=== PATIENT | male | born 1975 | race African-American/Black ===

== ENCOUNTER → 2019-10-28 | Emergency (ER) | payer OTHER ==
[~2019-10-28] VITALS: Ht 175.3 cm; Wt 117.9 kg
[~2019-10-28] MED LIST: LIDOCAINE 2% (LOCAL ANESTH.) PF 5ml SDV ONE; cefTRIAXone SOD 1,000 MG VL IM ONE
[2019-10-28 21:00] VITALS: BP 179/129
== END | disposition home or self-care (01) ==
LOC: ER 19:05
DX: S61.451A Open bite of right hand, initial encounter (principal); W64.XXXA Exposure to other animate mechanical forces, initial encounter; Y93.89 Activity, other specified; Y92.89 Other specified places as the place of occurrence of the external cause; Y99.8 Other external cause status; I10 Essential (primary) hypertension; Z88.6 Allergy status to analgesic agent
CPT/HCPCS: 73090; 73130; 96372; 99284; J0696; J2001